=== PATIENT | female | born 1990 | race Hispanic/Latino ===

== ENCOUNTER 2017-01-19 11:51 | Emergency (ER) | payer OTHER ==
[2017-01-19 11:51] VITALS: BMI 32.1
[2017-01-19 12:02] VITALS: BP 98/57; PULSE 88; RESP 20; TEMP 97; O2SAT 98
[2017-01-19] MEDS ORDERED: Sodium Chloride 0.9% 1,000 ML IV STA (12:06)
--- NOTE | 2017-01-19 12:09 | ED PDOC ---
HPI: Abdomen Time Seen by Provider: 01/19/17 11:53 Chief Complaint (Nursing): Abdominal Pain Chief Complaint (Provider): Abdominal pain Additional Complaint(s): 26 yo female, no PMH, presents to ED currently at 19 weeks () with complaints of RUQ pain, radiating to her back and worse after eating x 3-4 days now. Pt reports the pain has been intermittent for several weeks now, but worse in the last few days. No fever or chills. Pt notes that she has had gallbladder issues in the past; however, was advised that surgery was not emergently indicated at the time. Past Medical History Reviewed: Nursing Documentation, Vital Signs Vital Signs: Last Vital Signs Temp 97 F L 01/19/17 11:58 Pulse 88 01/19/17 11:58 Resp 20 01/19/17 11:58 BP 98/57 L 01/19/17 11:58 Pulse Ox 98 01/19/17 12:09 - Medical History PMH: Anemia, Asthma, Depression, Migraine - Surgical History Surgical History: Tonsillectomy, (2011) - Family History Family History: States: Unknown Family Hx - Living Arrangements Living Arrangements: With Family - Social History Current smoker - smoking cessation education provided: No Alcohol: None Drugs: Denies - Home Medications Home Medications: Ambulatory Orders Medication Instructions Recorded Albuterol Sulfate [Proair Hfa] 2 puff IH Q4H PRN #1 inh 05/10/15 Azithromycin [Zithromax Z-Ethan] 250 mg PO DAILY #6 tab 05/10/15 Prednisone 50 mg PO DAILY #4 tab 05/10/15 - Allergies Allergies/Adverse Reactions: Allergies Allergy/AdvReac Type Severity Reaction Status Date / Time No Known Allergies Allergy Verified 01/19/17 11:58 Review of Systems ROS Statement: Except As Marked, All Systems Reviewed And Found Negative Gastrointestinal: Positive for: Nausea, Abdominal Pain Physical Exam - Reviewed Nursing Documentation Reviewed: Yes Vital Signs Reviewed: Yes - Physical Exam Appears: Positive for: Well, Non-toxic, No Acute Distress Head Exam: Positive for: ATRAUMATIC, NORMAL INSPECTION, NORMOCEPHALIC Skin: Positive for: Normal Color, Warm, DRY Eye Exam: Positive for: EOMI, Normal appearance, PERRL ENT: Positive for: Normal ENT Inspection Neck: Positive for: Normal, Painless ROM Cardiovascular/Chest: Positive for: Regular Rate, Rhythm Respiratory: Positive for: CNT, Normal Breath Sounds Gastrointestinal/Abdominal: Positive for: Normal Exam, Bowel Sounds, Soft Back: Positive for: Normal Inspection Extremity: Positive for: Normal ROM Neurologic/Psych: Positive for: Alert, Oriented - Laboratory Results Result Diagrams: 01/19/17 13:10 01/19/17 13:10 - ECG O2 Sat by Pulse Oximetry: 98 Medical Decision Making Medical Decision Making: IV access established and treatment initiated with IVF, Pepcid and Zofran. Labs resulted and reviewed with pt who demonstrated full understanding US IMPRESSION: Mild hepatomegaly. . No evidence of cholelithiasis. Disposition - Clinical Impression Clinical Impression: Right upper quadrant abdominal pain - Patient ED Disposition Is Patient to be Admitted: No - Disposition Disposition: Routine/Home Disposition Time: 15:51 Condition: STABLE Instructions: Abdominal Pain in (ED) - POA Present On Arrival: None
[2017-01-19 13:15] LABS: BASO # 0.1 K/uL (0.0-0.2); BASO % 0.6 % (0.0-2.0); EOS # 0.3 K/uL (0.0-0.7); EOS % 2.2 % (0.0-4.0); HEMATOCRIT 34.7 % (34.0-47.0); LYMPH # 2.4 K/uL (1.0-4.3); LYMPH % 16.2 % (20.0-40.0); MEAN CELL VOLUME 80.9 fl (81.0-99.0); MEAN CORPUSCULAR HEMOGLOBIN 26.9 pg (27.0-31.0); MEAN CORPUSCULAR HGB CONC 33.3 g/dL (33.0-37.0); MEAN PLATELET VOLUME 7.1 fl (7.2-11.7); MONO % 6.5 % (0.0-10.0); NEUT # 10.9 K/uL (1.8-7.0); NEUT % 74.5 % (50.0-75.0); NRBC % 0.1 % (0.0-0.0); RED CELL DISTRIBUTION WIDTH 13.5 % (11.5-14.5); WHITE BLOOD COUNT 14.6 K/uL (4.8-10.8)
--- NOTE | 2017-01-19 13:18 | US ---
HISTORY: ruq pain x 3 days. Technologist notation indicates history cholecystitis 3 years ago. COMPARISON: None. TECHNIQUE: Sonographic evaluation of the right upper quadrant of the abdomen. FINDINGS: LIVER: The liver is enlarged measuring approximately 20 cm in length. Smooth contour and normal echogenicity of the liver parenchyma. No mass. No intrahepatic bile duct dilatation. GALLBLADDER: Gallbladder is physiologically distended. No evidence of intraluminal gallbladder calculi. No pericholecystic fluid collections or sonographic Angulo sign. COMMON BILE DUCT: Measures 2.7 mm. No stones. No dilatation. PANCREAS: Pancreas is poorly delineated due to habitus and overlying bowel gas. . . RIGHT KIDNEY: Right kidney measures approximately 10.9 x 4.3 x 6.4 cm in length. Normal echogenicity. No calculus, mass, or hydronephrosis. AORTA: No aneurysmal dilatation. IVC: Unremarkable. OTHER FINDINGS: None . IMPRESSION: Mild hepatomegaly. . No evidence of cholelithiasis.
[2017-01-19 13:31] LABS: ALB/GLOB RATIO 1.1 (1.0-2.1); ALKALINE PHOSPHATASE 102 U/L (38-126); ALT/SGPT 27 U/L (9-52); AST/SGOT 21 U/L (14-36); BILIRUBIN,TOTAL 0.1 mg/dl (0.2-1.3); BLOOD UREA NITROGEN 10 mg/dl (7-17); CALCIUM 9.4 mg/dL (8.4-10.2); CARBON DIOXIDE 25 mmol/L (22-30); CHLORIDE 103 mmol/L (98-107); GFR AFRICAN-AMERICAN > 60; GLUCOSE,RANDOM 87 mg/dL (65-105); LIPASE 78 U/L (23-300); POTASSIUM 4.2 MMOL/L (3.6-5.0); SODIUM 137 mmol/l (132-148); TOTAL PROTEIN 7.2 G/DL (6.3-8.2)
[2017-01-19 14:57] LABS: RBC URINE 3 /hpf (0-3); URINE BACTERIA RARE (<OCC); URINE BILIRUBIN NEGATIVE (NEGATIVE); URINE BLOOD NEGATIVE (NEGATIVE); URINE COLOR YELLOW (YELLOW); URINE GLUCOSE (UA) NEG (Normal); URINE KETONE NEGATIVE (NEGATIVE); URINE LEUKOCYTE ESTERASE MOD Leu/uL (Negative); URINE PROTEIN NEGATIVE (NEGATIVE); URINE UROBILINOGEN 0.2-1.0 mg/dL (0.2-1.0); WBC URINE 5 /hpf (0-5)
== END 2017-01-19 15:40 | disposition home or self-care (01) ==
LOC: H.ER 11:51
DX: O26.899 Other specified pregnancy related conditions, unspecified trimester (principal)